=== PATIENT | male | born 1965 | race American Indian/Alaskan Native ===

== ENCOUNTER 2017-08-30 09:27 | Outpatient (CLI) | payer OTHER ==
[2017-08-30 11:47] LABS: Hematocrit 43.2 % (35.5-45.6); Hemoglobin 14.4 gm/dl (11.8-15.2); Mean Corpuscular HGB Conc 33 % (32-34); Mean Corpuscular Hemoglobin 31 pg (28-32); Mean Corpuscular Volume 93 fl (84-94); Platelet Count 230 K/mm3 (140-440); Red Blood Count 4.64 M/mm3 (3.65-5.03); Red Cell Distribution Width 14.6 % (13.2-15.2); White Blood Count 4.9 K/mm3 (4.5-11.0)
[2017-08-30 12:05] LABS: Bilirubin,Total 0.6 mg/dL (0.1-1.2)
--- NOTE | 2017-08-30 12:26 | Nuclear Medicine Report ---
HEPATOBILIARY SCAN: Examination performed with 5 mCi mebrofenin and without CCK. History: Obstruction at the level of the gallbladder. Findings: Following the injection of the radionuclide, serial scanning was obtained over the right upper quadrant. Initial imaging of the liver demonstrates a relatively normal activity pattern. Progressive concentration of the radionuclide in the bile ducts, with filling of both the gallbladder and small bowel, is identified within a normal time period. IMPRESSION: Normal biliary system.
== END 2017-08-30 09:28 | disposition home or self-care (01) ==
LOC: NM 09:27
PROVIDERS: ATTEND Internal Medicine Gastroenterology
DX: K21.9 Gastro-esophageal reflux disease without esophagitis (principal); R10.32 Left lower quadrant pain
CPT/HCPCS: 36415; 78226; 82248; 84075; 85027; A9537

== ENCOUNTER 2017-10-18 13:20 | Outpatient (CLI) | payer OTHER ==
--- NOTE | 2017-10-18 22:21 | XRay Report ---
FINAL REPORT EXAM: XR CHEST ROUTINE 2V HISTORY: COUGH TECHNIQUE: Two views of the chest Comparison: None FINDINGS: Normal heart size. There are scattered calcific granulomata. Lungs are otherwise clear without focal infiltrate or consolidation. Imaged axial skeleton is unremarkable. Lung apices are clipped. IMPRESSION: Lung apices are clipped on the PA imaged. 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 No acute focal infiltrate or plain film evidence of bronchitis.
== END 2017-10-18 13:21 | disposition home or self-care (01) ==
LOC: XRAY 13:20
PROVIDERS: ATTEND Internal Medicine Gastroenterology
DX: J84.10 Pulmonary fibrosis, unspecified (principal); R10.9 Unspecified abdominal pain
CPT/HCPCS: 71046